=== PATIENT | male | born 1940 | race Native Hawaiian/Other Pacific Islander ===

== ENCOUNTER 2016-09-03 09:57 | Outpatient (CLI) | payer OTHER | END 2016-09-03 19:48 | disposition home or self-care (01) | LOC: LABW 09:57 | DX: I25.10 Atherosclerotic heart disease of native coronary artery without angina pectoris (principal); E78.4 Other hyperlipidemia; R55 Syncope and collapse; Z79.899 Other long term (current) drug therapy; Z51.81 Encounter for therapeutic drug level monitoring | CPT/HCPCS: 36415; 83036; 84443 ==

== ENCOUNTER 2017-03-10 12:26 | Outpatient (CLI) | payer OTHER | END 2017-03-10 13:30 | disposition home or self-care (01) | LOC: LABW 12:26 | DX: Z86.010 Personal history of colon polyps (principal) | CPT/HCPCS: 36415; 80053; 82272; 85027 ==

== ENCOUNTER 2017-03-30 09:52 | Outpatient (CLI) | payer OTHER ==
[2017-03-30 10:25] LABS: PLATELET COUNT 263 K/uL (142-355)
[2017-03-30 10:38] LABS: POTASSIUM 4.2 mmol/L (3.6-5.2); SODIUM 139 mmol/L (136-145)
== END 2017-03-30 19:06 | disposition home or self-care (01) ==
LOC: LABW 09:52
PROVIDERS: Podiatrist
DX: E11.9 Type 2 diabetes mellitus without complications (principal); Z01.810 Encounter for preprocedural cardiovascular examination; Z01.811 Encounter for preprocedural respiratory examination; Z01.812 Encounter for preprocedural laboratory examination
CPT/HCPCS: 36415; 80053; 83036; 85002; 85027

== ENCOUNTER 2018-06-05 09:06 | Outpatient (CLI) | payer OTHER | END 2018-06-05 20:30 | disposition home or self-care (01) | LOC: LAB 09:06 | DX: K64.0 First degree hemorrhoids (principal) | CPT/HCPCS: 82272 ==

== ENCOUNTER 2020-07-01 14:34 | Outpatient (CLI) | payer OTHER | END 2020-07-01 23:02 | disposition home or self-care (01) | LOC: CT 14:34 | PROVIDERS: ATTEND Internal Medicine | DX: M25.551 Pain in right hip (principal); Z91.81 History of falling ==